=== PATIENT | male | born 1995 | race Caucasian/White ===

== ENCOUNTER 2019-09-12 14:51 | Emergency (ER) | payer OTHER ==
[~2019-09-12] VITALS: Ht 162.6 cm; Wt 76.8 kg
--- NOTE | 2019-09-12 17:42 | REPVR ---
PROCEDURE INFORMATION: Exam: CT Head Without Contrast Exam date and time: 09/12/2019 5:18 PM Age: 23 years old Clinical indication: Pain; Headache not specified; Additional info: Left headache retro orbital ? subacute trauma (+etoh) TECHNIQUE: Imaging protocol: Computed tomography of the head without contrast. Axial and coronal reformatted images were created and reviewed. Radiation optimization: All CT scans at this facility use at least one of these dose optimization techniques: automated exposure control; mA and/or kV adjustment per patient size (includes targeted exams where dose is matched to clinical indication); or iterative reconstruction. COMPARISON: No relevant prior studies available. FINDINGS: Brain: No CT evidence of acute intracranial hemorrhage or acute territorial infarction. No significant mass effect or midline shift. Basal cisterns patent. Ventricles: Normal in size and configuration. Bones/joints: No acute osseous abnormality. Sinuses: Grossly unremarkable. Mastoid air cells: Grossly unremarkable. Soft tissues: Grossly unremarkable. IMPRESSION: No CT evidence of acute intracranial pathology. Electronically signed by: Alverto Swain On 09/12/2019 17:41:49 PM
[2019-09-12] MEDS ORDERED: KETOROLAC TROMETHAMINE 10 MG TAB PO ONE (17:45)
[2019-09-12] MEDS ORDERED: KETO10TAB PO (17:45)
[2019-09-12] MEDS ORDERED: ONDANSETRON 4 MG ORAL DISINTEGRATING TAB (Q0162 PER 1MG) PO ONE (17:45)
[2019-09-12] MEDS ORDERED: ONDA4TAB6 PO (17:46)
[2019-09-12 17:51] VITALS: BP 120/75
== END 2019-09-12 18:03 | disposition home or self-care (01) ==
LOC: M ED 14:51
DX: S06.0X0A Concussion without loss of consciousness, initial encounter (principal); X58.XXXA Exposure to other specified factors, initial encounter; Y92.89 Other specified places as the place of occurrence of the external cause
CPT/HCPCS: 70450; 99283; Q0162

== ENCOUNTER → 2020-11-21 | Outpatient (CLI) | payer OTHER ==
[~2020-11-21] MED LIST: KETO10TAB PO; ONDA4TAB6 PO
== END ==
LOC: M SLEEP 20:00
PROVIDERS: ATTEND Nurse Practitioner Family
DX: R06.83 Snoring (principal)

== ENCOUNTER → 2021-07-09 | Outpatient (REF) ==
--- NOTE | 2021-07-09 11:04 | REP ---
INDICATION: SOB/PAIN. COMPARISON: None. TECHNIQUE: PA and lateral FINDINGS: The superior mediastinal structures are midline. The cardiac silhouette is unremarkable in size, shape, and position. The diaphragmatic surfaces of the lungs are regular, and the costophrenic angles are clear. The pulmonary venegas are clear. The imaged osseous structures are intact. IMPRESSION: There is no acute cardiopulmonary disease. <Electronically signed by Connor Murrieta > 07/09/21 1100
--- NOTE | 2021-07-09 11:10 | REP ---
INDICATION: SOB/PAIN. COMPARISON: None. TECHNIQUE: AP and lateral views FINDINGS: There is no acute fracture or destructive osseous lesion IMPRESSION: Within normal limits <Electronically signed by Connor Murrieta > 07/09/21 1103
--- NOTE | 2021-07-09 11:11 | REP ---
INDICATION: SOB/PAIN COMPARISON: None TECHNIQUE: Three views FINDINGS: There is no evidence of a destructive osseous lesion. The compartments appear symmetric and well maintained. IMPRESSION: No acute osseous abnormality <Electronically signed by Connor Murrieta > 07/09/21 [id number]
--- NOTE | 2021-07-09 11:12 | REP ---
INDICATION: SOB/PAIN. COMPARISON: None. TECHNIQUE: Water's, PA, lateral and SMV views of the sinuses. FINDINGS: Sinuses are well aerated and essentially clear. No obvious mucosal thickening. No fluid level. No foreign body or abnormal calcifications. Surrounding soft tissues and osseous structures are intact. IMPRESSION: Normal sinus radiographs. <Electronically signed by Nicolas Dick > 07/09/21 1100
--- NOTE | 2021-07-09 11:14 | REP ---
INDICATION: SOB/PAIN COMPARISON: None. TECHNIQUE: AP, lateral, and swimmers views. FINDINGS: Alignment and kyphosis is maintained. Vertebral bodies intact. No acute fracture / compression injury or subluxation. Very subtle spurring and minimal endplate sclerosis at T7-8 and T8-9 is nonspecific. Paravertebral soft tissues are normal. IMPRESSION: Essentially age-appropriate examination as noted above. Questionable chronic changes at T7-8 and T8-9. <Electronically signed by Nicolas Dick > 07/09/21 [id number]
--- NOTE | 2021-07-09 11:15 | REP ---
INDICATION: SOB/PAIN COMPARISON: None. TECHNIQUE: AP, lateral, coned-down views of the lumbar spine. FINDINGS: Three views of the lumbosacral spine demonstrate satisfactory alignment and lordosis without acute fracture / compression injury or subluxation. IMPRESSION: 1. No acute fracture / compression injury or subluxation. 2. No significant degenerative changes. <Electronically signed by Nicolas Dick > 07/09/21 1111
== END ==
LOC: M PLAIMG 09:53
PROVIDERS: ATTEND Internal Medicine
DX: R06.02 Shortness of breath (principal)

== ENCOUNTER → 2023-08-03 | Outpatient (REF) | payer OTHER | LOC: M SMT 13:54 | PROVIDERS: ATTEND Urology | DX: M79.81 Nontraumatic hematoma of soft tissue (principal) | CPT/HCPCS: 11423; 88305; J0665 ==

== ENCOUNTER → 2023-11-10 | Outpatient (CLI) | payer OTHER | LOC: M OUTALCOH 08:51 | PROVIDERS: ATTEND Psychiatry & Neurology Psychiatry | DX: F10.20 Alcohol dependence, uncomplicated (principal); F12.20 Cannabis dependence, uncomplicated ==

== ENCOUNTER 2023-11-19 09:51 | Outpatient (RCR) | payer OTHER | END 2023-11-23 | LOC: M OUTALCOH 09:51 | PROVIDERS: ATTEND Psychiatry & Neurology Psychiatry | DX: F10.10 Alcohol abuse, uncomplicated (principal); F12.20 Cannabis dependence, uncomplicated; F17.200 Nicotine dependence, unspecified, uncomplicated ==